=== PATIENT | male | born 1975 | race Asian ===

== ENCOUNTER → 2016-10-06 | Outpatient (CLI) | payer SELFPAY | END | disposition disaster alternative care site (69) | LOC: GLAB 11:45 | DX: Z02.89 Encounter for other administrative examinations (principal) ==

== ENCOUNTER → 2016-10-10 | Outpatient (CLI) | payer SELFPAY | END | disposition disaster alternative care site (69) | LOC: GRAD 15:47 | DX: Z02.89 Encounter for other administrative examinations (principal); R76.11 Nonspecific reaction to tuberculin skin test without active tuberculosis; J98.4 Other disorders of lung ==